=== PATIENT | female | born 1995 | race Caucasian/White ===

== ENCOUNTER 2017-08-29 08:20 | Emergency (ER) | payer OTHER ==
[~2017-08-29] VITALS: Ht 162.6 cm; Wt 78.0 kg
[~2017-08-29 08:20] MED LIST: MOBI15TA PO; TRAM50 PO
[2017-08-29 08:32] VITALS: BP 128/80; PULSE 76; RESP 16; TEMP 99.4; O2SAT 98
[2017-08-29 08:38] VITALS: BP 119/60
[2017-08-29] MEDS ORDERED: KETOROLAC TROMETHAMINE 60 MG/2 ML (IM) VIAL IM ONE (10:30)
[2017-08-29] MEDS ORDERED: ORPHENADRINE INJ 60 MG/2 ML AMP IM ONE (10:30)
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
[2017-08-29] MEDS ORDERED: IBUP-232 PO (11:54)
[2017-08-29] MEDS ORDERED: CYCL10TA PO (11:54)
== END 2017-08-29 13:49 | disposition home or self-care (01) ==
LOC: NEPK 08:20
DX: S16.1XXA Strain of muscle, fascia and tendon at neck level, initial encounter (principal); M51.26 Other intervertebral disc displacement, lumbar region; R51 Headache; R42 Dizziness and giddiness; R11.0 Nausea; V43.62XA Car passenger injured in collision with other type car in traffic accident, initial encounter; Y92.410 Unspecified street and highway as the place of occurrence of the external cause
CPT/HCPCS: 72131; 96372; 99285; J1885; J2360